=== PATIENT | male | born 2000 | race Caucasian/White ===

== ENCOUNTER 2019-11-12 03:58 | Emergency (ER) | payer BC ==
[~2019-11-12] VITALS: Ht 188 cm; Wt 68.0 kg
[~2019-11-12 03:58] MED LIST: NOHOMEMEDICATIONS; SERTRALINE HCL100 MG PO
[2019-11-12 04:35] LABS: URINE BILIRUBIN NEGATIVE (Negative); URINE BLOOD NEGATIVE (Negative); URINE CLARITY CLEAR; URINE COLOR YELLOW; URINE GLUCOSE-RANDOM NEGATIVE (Negative); URINE KETONES NEGATIVE (Negative); URINE LEUKOCYTES NEGATIVE (Negative); URINE NITRITE NEGATIVE (Negative); URINE PROTEIN NEGATIVE (Negative); URINE SPECIFIC GRAVITY 1.015 (1.005-1.030); URINE UROBILINOGEN 0.2 E.U./dl (0.2-1.0)
[2019-11-12 04:43] LABS: AMP/METHAMP Negative (Negative); BARBITURATES Negative (Negative); BENZODIAZEPINES Negative (Negative); COCAINE Negative (Negative); METHADONE Negative (Negative); OPIATES Negative (Negative); PCP Negative (Negative); THC Negative (Negative)
[2019-11-12 04:59] LABS: HEMATOCRIT 44.9 % (42.0-52.0); HEMOGLOBIN 15.7 gm/dL (14.0-18.0); MCH 30.1 pg (26.0-34.0); MCV 85.8 fL (80.0-100.0); MPV 8.3 fl. (7.2-11.1); RBC 5.24 mil/uL (4.50-6.00); RDW-CV 14.6 % (10.5-14.5); WBC 5.3 thou/uL (4.0-11.0)
[2019-11-12 05:06] LABS: CALCIUM 8.3 mg/dL (8.5-10.1); CREATININE 1.1 mg/dL (0.6-1.3); POTASSIUM 3.5 mmol/L (3.5-5.1)
[2019-11-12 05:11] LABS: ALBUMIN 4.4 g/dL (3.4-5.0); TOTAL BILIRUBIN 0.7 mg/dL (<0.1-1.0); TOTAL PROTEIN 7.3 g/dL (6.4-8.2)
[2019-11-12 05:25] LABS: ALCOHOL 219 mg/dL (<10); SALICYLATE < 2.8 mg/dL (2.8-20.0)
[2019-11-12 05:37] LABS: ACETAMINOPHEN < 2 ug/mL (10-30)
[2019-11-12 18:55] VITALS: BP 129/64
== END 2019-11-12 18:55 ==
LOC: M.ERS 03:58
PROVIDERS: Personal Emergency Response Attendant
DX: R45.851 Suicidal ideations (principal); Z20.828 Contact with and (suspected) exposure to other viral communicable diseases; F32.9 Major depressive disorder, single episode, unspecified